=== PATIENT | female | born 1995 | race Caucasian/White ===

== ENCOUNTER 2017-11-24 23:16 | Inpatient (IN) ==
[2017-11-24] MEDS ORDERED: Ringers Solution, Lactated 1,000 ML ONE (23:20)
[2017-11-24] MEDS ORDERED: Naloxone 0.4 MG/ML INJ IVP PRN (23:25)
[2017-11-24] MEDS ORDERED: Famotidine 20 MG/2 ML VIAL IVP PRN (23:25)
[2017-11-24] MEDS ORDERED: Ringers Solution, Lactated 1,000 ML IVC SCH (23:30)
[2017-11-25] MEDS ORDERED: Bupivacaine-MPF 0.25% 10 ML VIAL EP ONE (00:13)
[2017-11-25] MEDS ORDERED: *HR* FentaNYL (PF) 100 MCG/2 ML VIAL EP ONE (00:13)
[2017-11-25] MEDS ORDERED: Epidural Premix (fent/bupiv) 110 ML EP SCH (00:15)
[2017-11-25] MEDS ORDERED: Epidural Premix (fent/bupiv) 0 ML EP ONE (00:26)
[2017-11-25] MEDS ORDERED: *HR* Oxytocin 10 UNIT/ML VIAL IM ONE ×2 (00:39→00:40)
[2017-11-25] MEDS ORDERED: Lidocaine 1% 20 ML MDV ONE ×2 (00:58→01:02)
--- NOTE | 2017-11-25 01:58 | OB/GYN History & Physical ---
Date of Encounter: 11/25/17 Time of Encounter: 01:48 Assessment and Plan (1) Uterine contractions Current visit: Yes Status: Acute Contractions about every 2 minutes Cervical change from 1-2cm to 4cm SROM at 2309 Admit to L&D monitoring: baseline 140 with variability and accels - Category I Kibler Q 2-3 minutes Expect (2) complicated by subutex maintenance, antepartum Current visit: Yes Status: Acute (3) Hepatitis C antibody test positive Current visit: Yes Status: Acute (4) Rubella non-immune status, antepartum Current visit: Yes Status: Acute (5) 39 weeks gestation of Current visit: Yes Status: Acute History of Present Illness Chief complaint: Contractions HPI: Ms. Bryant is a 22 year old female at 39w6d presenting to L&D with contractions. She initially went to the ED at [facility] with contractions every 2 minutes. Cervix at [facility] was 1-2cm. She was then transferred to [place] for further management. She denies LOF, vaginal bleeding, or vaginal discharge. This has been complicated by tobacco use and subutex. She has a history of Hepatitis C. She denies fevers, chills, abdominal pain, dysuria, or edema. Blood type O+ GBS negative Rubella Non-immune Varicella Immune Hep B negative Hep C positive All other serologies negative Past Med Surg Social Fam HX - Past Medical History Medical history: hepatitis (Hep C) Psychiatric history: anxiety, depression - Past Surgical History Surgical History: no surgical history - Social History Smoking Status: Current every day smoker Packs per day: 1/4 Smokeless Tobacco Status: No Alcohol use: none Drug use: none - Family History Mother Adopted: No Hx Family Cardiac Disorders: No Hx Family Respiratory Disorders: No Hx Family Cancer: No Hx Family GI Disorders: No Hx Family Genitourinary Disorders: No Hx Family Endocrine Disorder: No Hx Family Musculoskeletal Disorders: No Hx Family Neuromuscular Disorders: No Hx Family Neurologic Disorders: No Hx Family HEENT Disorders: No Hx Family Autoimmune Disorders: No Hx Family Reproductive Disorders: No Hx Family Psychosocial Disorders: No Hx Family Medical Disorders: No Obstetrical History - Pregnancies : 1 Para: 0 Term: 0 : 0 Ab's: 0 Livin - History/Complications History/Complications: Tobacco use and subutex Medications and Allergies Acetaminophen [Tylenol] 650 mg PO Q6HR PRN #0 tablet 06/06/16 [Rx] Docusate Sodium [Colace] 100 mg PO BID #20 capsule 07/12/16 [Rx] Hydrocortisone Acetate [Anusol-Hc] 25 mg RC BID #28 supp.rect 07/12/16 [Rx] Polyethylene Glycol 3350 [MiraLAX] 17 gm PO BID #10 powd.pack 07/12/16 [Rx] 3 Allergy/AdvReac Type Severity Reaction Status Date / Time Cyclobenzaprine Allergy Anaphylaxis Verified 06/03/16 22:15 [From Flexeril] Review of System OB All systems PM: reviewed and no additional remarkable complaints except as stated Exam - Constitutional Constitutional: well developed, well nourished, no acute distress, average body habitus - HEENT HEENT: Normocephaly, Mucus Membranes Moist - Lungs Respiratory exam: CTAB - Cardiovascular Cardiovascular exam: RRR, +S1, +S2 - Abdomen Abdomen: Present: bowel sounds normal - Extremities Extremities exam: normal capillary refill - Vulva Vulva: bilateral: normal - Vagina Vagina: Present: normal moisture - Cervix Dilation: 4 (per therapeutic massage technician exam) Effacement: 100 Station: 0 - Uterus Uterus exam: Present: normal size, normal contour - Anus/Rectum Anus/Rectum: Present: hemorrhoids - Comments Comments: Several healing skin wounds of various stages on legs and arms. Needle montiel noted to numerous (greater than 20) places on skin. Pt refuses to disclose the origin of her montiel. Results Result Diagrams: 11/24/17 00:00 Abnormal lab results WBC 13.0 K/mcL (4.3-11.1) H 11/24/17 00:00 Hgb 10.6 g/dL (11.5-15.4) L 11/24/17 00:00 Hct 32.2 % (35.3-44.9) L 11/24/17 00:00 MCV 78.5 fL (83.0-100.0) L 11/24/17 00:00 MCH 25.9 pg (28.0-33.3) L 11/24/17 00:00 RDW 15.6 % (11.5-14.5) H 11/24/17 00:00 Neutrophils # 10.0 K/mcL (1.6-8.9) H 11/24/17 00:00 All other labs normal. - VTE Reasons for not Prescribing Prophylaxis: Treatment not Indicated - Low risk for VTE
--- NOTE | 2017-11-25 02:04 | OB/GYN Procedure Note ---
Delivery - Delivery Date: 11/25/17 Provider: Romelia Rose Intrapartum events: meconium Delivery induction: none Delivery monitor: external FHT, external uterine Anesthesia: local Estimated Blood Loss: 250 - Infant (s) Infant A Delivery Date: 11/25/17 Infant Delivery Time: 00:53 Presentation: vertex Position: OA Route of delivery: Gender: Male Viability: Viable Pounds: 8 Ounces: 2 Weight Gram: 3685 kg at 1 minute: 8 at 5 mins: 9 Shoulder Dystocia: not encountered Specimens collected: cord blood Placenta: spontaneous Cord: 3 umbilical vessels - Repair Episiotomy: none Laceration Description: Labial - Complications Delivery complications: none Delivery comments: Patient presented in spontaneous labor from [facility]. Meconinum stained fluid during labor. Patient progressed to complete, maternal bearing down efforts of liveborn male. Vertex delivered OA. Due to halting of all maternal effort shoulders did not immediately follow, once patient was repositioned and redirected shoulders and body easily followed. Terminal meconium also noted at delivery. Dr. Bruno called to attend delivery after shoulders did not initially deliver. Vigorous infant placed on bed cord clamped and cut infant handed off to nursery team for evaluation. Apgars 8/9. Placenta delivered spontaneously, complete upon inspection. Fundus massaged until firm. IM Pitocin given to the patient due to lack of intravenous access. Bilateral labial tears repaired with 4-0 Vicryl. EBL 250. Obion needle cap came out on head during delivery. Mother also spit out a ball of plastic containing an unknown substance from her mouth, immediately after delivery package was turned over hospital security. - Disposition Mom disposition: stable in LDR Mccormick disposition: stable in LDR
[2017-11-25 02:14] LABS: Amphetamine Screen,Urine Negative ng/mL (Cutoff=1000); Barbiturate Screen,Urine Negative ng/mL (Cutoff=200); Benzodiazepines Screen,Urine Negative ng/mL (Cutoff=200); Cannabinoid Screen,Urine Positive ng/mL (Cutoff = 50); Cocaine Screen,Urine Negative ng/mL (Cutoff= 300); Opiate Screen,Urine Negative ng/mL (Cutoff=300); Phencyclidine Screen,Urine Negative ng/mL (Cutoff=25)
[2017-11-25] MEDS ORDERED: Measles/Mumps/Rubella Vacc 0.5 ML VIAL SQ PRN (04:19)
[2017-11-25] MEDS ORDERED: Acetaminophen 325 MG TABLET PO PRN (04:19)
[2017-11-25] MEDS ORDERED: Rho Immune Globulin 1,500 UNIT SYRINGE IM PRN (04:19)
[2017-11-25] MEDS: Ibuprofen 600 MG TABLET PO SCH ×3 (06:31→17:02)
[2017-11-25] MEDS: Prenatal Vit/FA 1 EACH TABLET PO SCH (11:23)
[2017-11-25] MEDS: miSOPROStol 100 MCG TABLET PO SCH ×3 (11:23→20:00)
[2017-11-26 06:53] LABS: Basophils % 0.2 %; Eosinophils # 0.1 K/mcL (0.0-0.6); Eosinophils % 0.7 %; Hematocrit 30.6 % (35.3-44.9); Hemoglobin 9.9 g/dL (11.5-15.4); Immature Granulocytes % 0.9 % (0-4); Lymphocytes # 2.2 K/mcL (0.6-4.6); Lymphocytes % 22.8 %; Mean Corpuscular HGB Conc 32.4 g/dL (31.6-35.5); Mean Corpuscular Hemoglobin 26.1 pg (28.0-33.3); Mean Corpuscular Volume 80.5 fL (83.0-100.0); Mean Platelet Volume 9.6 fL (9.4-12.4); Monocytes # 0.5 K/mcL (0.0-1.3); Neutrophils # 6.9 K/mcL (1.6-8.9); Platelet Count 275 K/mcL (140-400); Red Cell Distribution Width 15.5 % (11.5-14.5); Segmented Neutrophils % 70.4 %
[2017-11-26 08:16] VITALS: BP 114/71
[2017-11-26] MEDS: Ibuprofen 600 MG TABLET PO SCH (09:23)
[2017-11-26] MEDS: Prenatal Vit/FA 1 EACH TABLET PO SCH (09:24)
--- NOTE | 2017-11-26 10:22 | Discharge Summary ---
Date of Encounter: 11/26/17 Time of Encounter: 10:19 - Discharge Diagnosis (1) Status post vaginal delivery Priority: Primary Status: Acute Comments: Pt doing well and meeting milestones Voiding well, tolerating po intake, ambulating well Pain controlled Her baby is a 5 day hold She may be discharged today (2) complicated by subutex maintenance, antepartum Priority: Secondary Status: Acute Comments: Follows with Dr. Patel. She has a subutex prescription at home. Recommended close follow-up with Dr. Patel SW saw patient during hospitalization and verified Subutex use. Due to conflicting stories about drug use, [facility] was notified. (3) Hepatitis C antibody test positive Priority: Secondary Status: Acute (4) Rubella non-immune status, antepartum Priority: Secondary Status: Acute Comments: Will give MMR (5) 39 weeks gestation of Priority: Secondary Status: Acute - Discharge Medications Prescriptions: Ibuprofen [Motrin] 600 mg PO Q6HR PRN #60 tablet PRN Reason: Mild To Moderate Pain Benzocaine/Menthol Slick [Dermoplast Slick] 56 gm TP 1-3XD PRN #1 aerosol PRN Reason: Mild To Moderate Pain Docusate [Colace] 100 mg PO BID PRN #60 capsule PRN Reason: Constipation Ferrous Sulfate 325 mg PO DAILY #30 tablet Home Medications: Acetaminophen [Tylenol] 650 mg PO Q6HR PRN #0 tablet 06/06/16 [Rx] Docusate Sodium [Colace] 100 mg PO BID #20 capsule 07/12/16 [Rx] Hydrocortisone Acetate [Anusol-Hc] 25 mg RC BID #28 supp.rect 07/12/16 [Rx] Polyethylene Glycol 3350 [MiraLAX] 17 gm PO BID #10 powd.pack 07/12/16 [Rx] Acetaminophen [Tylenol] 650 mg PO Q6HR PRN tablet 11/26/17 [Rx] Benzocaine/Menthol Slick [Dermoplast Slick] 56 gm TP 1-3XD PRN #1 aerosol [Rx] Docusate [Colace] 100 mg PO BID PRN #60 capsule 11/26/17 [Rx] Ferrous Sulfate 325 mg PO DAILY #30 tablet 11/26/17 [Rx] Ibuprofen [Motrin] 600 mg PO Q6HR PRN #60 tablet 11/26/17 [Rx] Vit/FA 1 each PO DAILY tablet 11/26/17 [Rx] Allergies/Adverse Reactions: 3 Allergy/AdvReac Type Severity Reaction Status Date / Time Cyclobenzaprine Allergy Anaphylaxis Verified 06/03/16 22:15 [From Flexeril] Data Procedures and tests throughout hospitalization: Laboratory Tests 11/24/17 11/25/17 11/26/17 00:00 01:59 06:24 WBC 13.0 H 9.7 RBC 4.10 3.80 L Hgb 10.6 L 9.9 L Hct 32.2 L 30.6 L MCV 78.5 L 80.5 L MCH 25.9 L 26.1 L MCHC 32.9 32.4 RDW 15.6 H 15.5 H Plt Count 313 275 MPV 9.8 9.6 Immature Gran % 0.8 0.9 Seg Neutrophils % 76.7 70.4 Lymphocytes % 18.4 22.8 Monocytes % 3.8 5.0 Eosinophils % 0.1 0.7 Basophils % 0.2 0.2 Neutrophils # 10.0 H 6.9 Lymphocytes # 2.4 2.2 Monocytes # 0.5 0.5 Eosinophils # 0.0 0.1 Basophils # 0.0 0.0 Urine Opiates Screen Negative Ur Barbiturates Screen Negative Ur Phencyclidine Scrn Negative Ur Amphetamines Screen Negative U Benzodiazepines Scrn Negative Urine Cocaine Screen Negative U Marijuana (THC) Screen Positive H Labs on day of discharge: Labs from last 24 hours 11/26/17 06:24 WBC 9.7 RBC 3.80 L Hgb 9.9 L Hct 30.6 L MCV 80.5 L MCH 26.1 L MCHC 32.4 RDW 15.5 H Plt Count 275 MPV 9.6 Immature Gran % 0.9 Seg Neutrophils % 70.4 Lymphocytes % 22.8 Monocytes % 5.0 Eosinophils % 0.7 Basophils % 0.2 Neutrophils # 6.9 Lymphocytes # 2.2 Monocytes # 0.5 Eosinophils # 0.1 Basophils # 0.0 Date of admission: 11/24/17 23:16 Primary care physician: PCP NONE Consults: 11/25/17 04:19 Consult to [employer] Consultant [CONS] Routine Comment: Vaginal delivery, consult needed Consult to Second Vp Hr Assessment [CONS] Routine Reason for SW Consult: nonprescription drug use Discharging clinician: Gopi R Alton Anticipated date of discharge: 11/26/17 - Patient Status Disposition: Home, Self-Care Condition: Good Functional capacity at discharge: independent ambulation Overall status at discharge: patient is progressing back to baseline - Discharge Instructions Follow Up With: NONE,PCP [Primary Care Provider] - Additional Instructions: Take medications as prescribed Follow-up with Dr. Patel within the next week Follow-up with OB in 4-6 weeks for routine follow-up - Diet and Activity Activity: increase activity as tolerated Diet: advance to your usual diet Hospital Course Reason for admission: active labor Delivery: Episiotomy: none Laceration: other (labial) Other procedures: none complications: none Discharge diagnosis: IUP at term delivered baby: male Hospital course: - Delivery Date: 11/25/17 Provider: Romelia Rose Intrapartum events: meconium Delivery induction: none Delivery monitor: external FHT, external uterine Anesthesia: local Estimated Blood Loss: 250 - (s) Infant A Delivery Date: 11/25/17 Delivery Time: 00:53 Presentation: vertex Position: OA Route of delivery: Gender: Male Viability: Viable Pounds: 8 Ounces: 2 Weight Gram: 3685 kg at 1 minute: 8 at 5 mins: 9 Shoulder Dystocia: not encountered Specimens collected: cord blood Placenta: spontaneous Cord: 3 umbilical vessels - Repair Episiotomy: none Laceration Description: Labial - Complications Delivery complications: none Delivery comments: Patient presented in spontaneous labor from [facility] ED. Meconinum stained fluid during labor. Of note during delivery: orange needle cap came out on head during delivery. Mother also spit out a ball of plastic containing an unknown substance from her mouth, immediately after delivery package was turned over hospital security. Pt is doing well and meeting milestones. Tolerating po intake, voiding well, ambulating well, pain controlled. She may be discharged. Time Attestation: Total time spent providing and/or coordinating discharge services: Time Spent: Less than 30 minutes Exam - Constitutional Vitals: Temp Pulse Resp BP Pulse Ox 97.9 F 68 16 114/71 96 11/26/17 08:15 11/26/17 08:15 11/26/17 10:04 11/26/17 08:15 11/26/17 08:15 General appearance IM: A&O X 3, no acute distress - Respiratory Respiratory exam: Present: CTAB - Cardiovascular Cardiovascular exam IM: Present: RRR, +S1, +S2 - GI/Abdominal GI/Abdominal exam IM: normal bowel sounds, soft, no peritoneal signs - Uterine Tone: Firm Uterus Position: 3 Fingers Below Umbilicus - Extremities Exam Extremities exam IM: Present: normal capillary refill, normal inspection - Neurological Exam Neurological exam: alert, no focal deficits - Attending Attestation I examined this patient and my medical decision-making was reviewed with the Resident Physician. I agree with the documented findings, disposition and treatment plan as described. Lucia Ko CNM
== END 2017-11-26 13:10 | disposition home or self-care (01) | DRG 774 ==
LOC: 1NENULAB 23:16 → 1NENUOBS 11-25 03:55
PROVIDERS: ADMIT Advanced Practice Midwife; ATTEND Advanced Practice Midwife

== ENCOUNTER 2022-07-05 13:48 | Observation (INO) ==
[2022-07-05 18:23] LABS: Bacteria,Urine Few per hpf (None-Few); Bilirubin,Urine Small (Negative); Blood,Urine Negative (Negative); Clarity,Urine Turbid (Clear); Color,Urine Orange (Yellow); Glucose,Urine (UA) Normal (Normal); Hyaline Casts,Urine Few per lpf (None Seen); Ketones,Urine Negative (Negative); Leukocyte Esterase,Urine Trace (Negative); Mucus,Urine Few per lpf (None-Few); Nitrite,Urine Positive (Negative); PH,Urine 6.5 pH Units (5.0-8.0); Protein,Urine 30 mg/dL (Neg-Trace); Specific Gravity,Urine 1.019 (1.010-1.025); Squamous Epithelial Cell,Urine Many per hpf (None-Few)
[2022-07-05] MEDS ORDERED: Iopamidol - 370 500 ML MLS IVP ONE (18:44)
[2022-07-05] MEDS ORDERED: 0.9 % Sodium Chloride 1,000 ML IV ONE ×2 (18:46→20:00)
[2022-07-05] MEDS ORDERED: cefTRIAXone 1,000 MG in 0.9 % Sodium Chloride 10 ML IVP ONE (20:02)
[2022-07-05 20:37] LABS: Adenovirus Not Detected (Not Detect); Bordetella Pertussis Not Detected (Not Detect); Chlamydophila pneumoniae Not Detected (Not Detect); Coronavirus 229E Not Detected (Not Detect); Coronavirus HKU1 Not Detected (Not Detect); Coronavirus NL63 Not Detected (Not Detect); Coronavirus OC43 Not Detected (Not Detect); Human Metapneumovirus Not Detected (Not Detect); Human Rhinovirus/Enterovirus Not Detected (Not Detect); Influenza A Subtype 2009 H1 Not Detected (Not Detect); Influenza B Not Detected (Not Detect); Mycoplasma pneumoniae Not Detected (Not Detect); Parainfluenza Virus 1 Not Detected (Not Detect); Parainfluenza Virus 2 Not Detected (Not Detect); Parainfluenza Virus 3 Not Detected (Not Detect); Parainfluenza Virus 4 Not Detected (Not Detect); Respiratory Syncytial Virus Not Detected (Not Detect); SARS-CoV-2 Not Detected (Not Detect)
[2022-07-05 20:48] LABS: Amphetamine Screen,Urine Positive ng/mL (Cutoff=1000); Barbiturate Screen,Urine Negative ng/mL (Cutoff=200); Benzodiazepines Screen,Urine Negative ng/mL (Cutoff=200); Cannabinoid Screen,Urine Negative ng/mL (Cutoff = 50); Cocaine Screen,Urine Positive ng/mL (Cutoff= 300); Opiate Screen,Urine Negative ng/mL (Cutoff=300); Phencyclidine Screen,Urine Negative ng/mL (Cutoff=25)
[2022-07-05 21:02] LABS: Hematocrit 34.9 % (35.3-44.9); Hemoglobin 11.8 g/dL (11.5-15.4); Immature Granulocytes % 0.3 % (0-4); Immature Platelets 3.4 % (1.1-6.1); Lymphocytes # 0.1 K/mcL (0.6-4.6); Lymphocytes % 3.5 %; Mean Corpuscular HGB Conc 33.8 g/dL (31.6-35.5); Mean Corpuscular Hemoglobin 29.1 pg (28.0-33.3); Mean Corpuscular Volume 86.2 fL (83.0-100.0); Mean Platelet Volume 10.2 fL (9.4-12.4); Monocytes % 0.9 %; Neutrophils # 3.3 K/mcL (1.6-8.9); Platelet Count 71 K/mcL (140-400); Red Blood Count 4.05 M/mcL (3.82-4.97); Red Cell Distribution Width 12.6 % (11.5-14.5); Segmented Neutrophils % 95.3 %; White Blood Count 3.5 K/mcL (4.3-11.1)
[2022-07-05 21:04] LABS: VBG HCO3 26 mEq/L (21-27); VBG PCO2 49 mmHg (41-51); VBG PH 7.33 pH Units (7.32-7.42); VBG PO2 38 mmHg (25-50)
[2022-07-05 21:22] LABS: Platelet Estimate Decreased (Normal)
[2022-07-05 21:23] LABS: Alanine Aminotransferase 117 Units/L (7-52); Albumin 3.6 g/dL (3.5-5.7); Albumin/Globulin Ratio 1.3 (1.1-2.2); Alkaline Phosphatase 84 Units/L (34-104); Amylase 21 Units/L (29-103); Aspartate Amino Transferase 149 Units/L (13-39); BUN/Creatinine Ratio 17 (6-26); Bilirubin,Direct 1.5 mg/dL (0.0-0.2); Bilirubin,Indirect 1.5 mg/dL (0.0-1.0); Blood Urea Nitrogen 18 mg/dL (6-20); Calcium 8.3 mg/dL (8.6-10.3); Carbon Dioxide 25 mEq/L (23-29); Chloride 96 mEq/L (98-107); Globulin 2.8 g/dL (2.4-3.5); Glucose 119 mg/dL (70-105); Osmolality,Calculated 269 (280-300); Potassium 4.1 mEq/L (3.5-5.1); Sodium 128 mEq/L (136-145); Total Protein 6.4 g/dL (6.4-8.9); eGFR For African Americans > 60 (> 60); eGFR For Non-African Americans > 60 (> 60)
[2022-07-05 21:29] LABS: Acetaminophen < 10 mcg/mL (10-20)
[2022-07-05] MEDS ORDERED: MetroNIDAZOLE 500 MG/100 ML 500 MG/100 ML BAG IVPB ONE (21:30)
[2022-07-05 22:02] LABS: INR 1.3; Prothrombin Time 14.6 Seconds (9.4-12.1)
[2022-07-05] MEDS ORDERED: Acetaminophen 325 MG TABLET PO PRN (22:23)
[2022-07-05] MEDS ORDERED: Naloxone 0.4 MG/ML INJ IVP PRN (22:23)
[2022-07-05] MEDS ORDERED: Melatonin 3 MG TABLET PO PRN (22:23)
[2022-07-05] MEDS ORDERED: Ondansetron 4 MG/2 ML VIAL IVP PRN (22:23)
[2022-07-05 22:59] LABS: Hepatitis B Surface Antigen Nonreactive (Nonreactive)
[2022-07-05 23:29] LABS: Hepatitis B Core IgM Nonreactive (Nonreactive)
[2022-07-05 23:30] LABS: Hepatitis A Antibody IgM Nonreactive (Nonreactive)
[2022-07-06] MEDS ORDERED: *HR* LORazepam 0.5 MG TABLET PO ONE (00:07)
[2022-07-06] MEDS ORDERED: Dextrose Gel 15 GM/37.5 ML TUBE PO PRN ×2 (00:07)
[2022-07-06] MEDS ORDERED: *HR* Dextrose 50 % in Water (Syg) 50 ML SYRINGE IVP PRN (00:07)
[2022-07-06] MEDS ORDERED: D5% in Water 1,000 ML IVC PRN (00:07)
[2022-07-06] MEDS: *HR* OxyCODONE Immed Rel 5 MG TABLET PO PRN ×2 (00:26→20:33)
[2022-07-06] MEDS: Piperacillin/Tazobactam 3.375 GM in 0.9 % Sodium Chloride Mini Bag 100 ML IVPB SCH ×4 (00:31→23:47)
[2022-07-06] MEDS: Ringers Solution, Lactated 1,000 ML IVC SCH ×2 (00:33→16:52)
[2022-07-06] MEDS ORDERED: Saliva Stimulant 44.3ml BOTTLE PO PRN (01:24)
[2022-07-06] MEDS ORDERED: Morphine Sulfate 2 MG/ML SYRINGE IVP ONE (01:43)
[2022-07-06] MEDS: Calcium Gluconate 1gm/50mL 1 GM/50 ML BAG IVPB SCH ×2 (01:57→02:47)
[2022-07-06 02:58] LABS: Hepatitis C Virus Antibody Reactive (Nonreactive)
[2022-07-06] MEDS ORDERED: Ringers Solution, Lactated 1,000 ML IVC ONE (04:50)
[2022-07-06] MEDS ORDERED: Vancomycin 1,250 MG/262.5 ML IV.SOLN IVPB SCH (06:00)
[2022-07-06] MEDS: Lactobacillus 1 EACH CAP.SPRINK PO SCH ×2 (10:24→20:32)
[2022-07-06] MEDS: Nicotine 21 MG PATCH.TD24 TD SCH (10:24)
[2022-07-06] MEDS: *HR* HYDROcodone/Acet 5/325 mg TABLET PO PRN (10:32)
[2022-07-06 12:20] LABS: Basophils % 0.1 %; Hemoglobin 11.6 g/dL (11.5-15.4); Lymphocytes % 3.7 %; Red Cell Distribution Width 12.9 % (11.5-14.5)
[2022-07-06 12:21] LABS: Hematocrit 34.3 % (35.3-44.9); Immature Granulocytes % 0.6 % (0-4); Immature Platelets 5.2 % (1.1-6.1); Lymphocytes # 0.4 K/mcL (0.6-4.6); Mean Corpuscular HGB Conc 33.8 g/dL (31.6-35.5); Mean Corpuscular Hemoglobin 28.8 pg (28.0-33.3); Mean Corpuscular Volume 85.1 fL (83.0-100.0); Mean Platelet Volume 10.1 fL (9.4-12.4); Monocytes # 0.6 K/mcL (0.0-1.3); Monocytes % 5.6 %; Red Blood Count 4.03 M/mcL (3.82-4.97); White Blood Count 11.4 K/mcL (4.3-11.1)
[2022-07-06 12:24] LABS: Neutrophils # 10.3 K/mcL (1.6-8.9); Platelet Count 73 K/mcL (140-400)
[2022-07-06 12:27] LABS: INR 1.6; Prothrombin Time 17.7 Seconds (9.4-12.1)
[2022-07-06 12:29] LABS: Activated Partial Thrombo Time 39.2 Seconds (26.0-36.0)
[2022-07-06 12:52] LABS: Alanine Aminotransferase 106 Units/L (7-52); Albumin 3.5 g/dL (3.5-5.7); Albumin/Globulin Ratio 1.2 (1.1-2.2); Alkaline Phosphatase 79 Units/L (34-104); Aspartate Amino Transferase 95 Units/L (13-39); BUN/Creatinine Ratio 20 (6-26); Bilirubin,Total 1.2 mg/dL (0.3-1.0); Blood Urea Nitrogen 17 mg/dL (6-20); Calcium 8.5 mg/dL (8.6-10.3); Carbon Dioxide 26 mEq/L (23-29); Chloride 101 mEq/L (98-107); Gamma Glutamyl Transpeptidase 66 Units/L (7-64); Globulin 2.9 g/dL (2.4-3.5); Glucose 83 mg/dL (70-105); Magnesium 1.4 mg/dL (1.6-2.6); Osmolality,Calculated 279 (280-300); Phosphorous 3.4 mg/dL (2.7-4.5); Potassium 3.7 mEq/L (3.5-5.1); Sodium 134 mEq/L (136-145); Total Protein 6.4 g/dL (6.4-8.9); eGFR For African Americans > 60 (> 60); eGFR For Non-African Americans > 60 (> 60)
[2022-07-06] MEDS: *HR* LORazepam 2 MG/ML VIAL IVP PRN ×2 (14:59→20:33)
[2022-07-06 23:28] VITALS: TEMP 98; O2SAT 95
[2022-07-07] MEDS: *HR* HYDROcodone/Acet 5/325 mg TABLET PO PRN (03:23)
[2022-07-07] MEDS: *HR* LORazepam 2 MG/ML VIAL IVP PRN ×2 (03:23→09:15)
[2022-07-07 03:55] VITALS: BP 97/58; PULSE 96
[2022-07-07 04:14] LABS: Hemoglobin 10.7 g/dL (11.5-15.4); Mean Platelet Volume 11.1 fL (9.4-12.4); Red Cell Distribution Width 13.2 % (11.5-14.5)
[2022-07-07 04:16] LABS: Basophils % 0.1 %; Eosinophils % 0.1 %; Hematocrit 32.3 % (35.3-44.9); Immature Granulocytes % 6.3 % (0-4); Immature Platelets 4.8 % (1.1-6.1); Lymphocytes # 1.2 K/mcL (0.6-4.6); Lymphocytes % 8.9 %; Mean Corpuscular HGB Conc 33.1 g/dL (31.6-35.5); Mean Corpuscular Hemoglobin 28.5 pg (28.0-33.3); Mean Corpuscular Volume 86.1 fL (83.0-100.0); Monocytes # 0.6 K/mcL (0.0-1.3); Monocytes % 4.8 %; Neutrophils # 10.7 K/mcL (1.6-8.9); Platelet Count 72 K/mcL (140-400); Red Blood Count 3.75 M/mcL (3.82-4.97); Segmented Neutrophils % 79.8 %; White Blood Count 13.4 K/mcL (4.3-11.1)
[2022-07-07] MEDS: Ringers Solution, Lactated 1,000 ML IVC SCH (04:30)
[2022-07-07 04:33] LABS: Alanine Aminotransferase 77 Units/L (7-52); Albumin/Globulin Ratio 1.2 (1.1-2.2); Alkaline Phosphatase 73 Units/L (34-104); Aspartate Amino Transferase 61 Units/L (13-39); BUN/Creatinine Ratio 17 (6-26); Bilirubin,Total 0.7 mg/dL (0.3-1.0); Blood Urea Nitrogen 13 mg/dL (6-20); Calcium 8.4 mg/dL (8.6-10.3); Carbon Dioxide 26 mEq/L (23-29); Chloride 106 mEq/L (98-107); Globulin 2.6 g/dL (2.4-3.5); Glucose 98 mg/dL (70-105); Magnesium 1.5 mg/dL (1.6-2.6); Osmolality,Calculated 282 (280-300); Phosphorous 1.8 mg/dL (2.7-4.5); Potassium 3.8 mEq/L (3.5-5.1); Sodium 136 mEq/L (136-145); Total Protein 5.6 g/dL (6.4-8.9); eGFR For African Americans > 60 (> 60); eGFR For Non-African Americans > 60 (> 60)
[2022-07-07] MEDS: Lactobacillus 1 EACH CAP.SPRINK PO SCH (08:57)
[2022-07-07] MEDS: Piperacillin/Tazobactam 3.375 GM in 0.9 % Sodium Chloride Mini Bag 100 ML IVPB SCH (08:57)
[2022-07-07] MEDS: Nicotine 21 MG PATCH.TD24 TD SCH (08:57)
[2022-07-07] MEDS ORDERED: Nicotine 2 MG GUM BC PRN (11:46)
[2022-07-07] MEDS: *HR* OxyCODONE Immed Rel 5 MG TABLET PO PRN (12:52)
[2022-07-07] MEDS ORDERED: Ampicillin 2,000 MG in 0.9 % Sodium Chloride Mini Bag 100 ML IVPB SCH (18:00)
[2022-07-08 14:15] LABS: HCV Quant Interpretation DETECTED (Not Detected); HCV Quant Log 4.02 log IU/mL
== END 2022-07-07 13:35 | disposition left against medical advice (07) ==
LOC: SUATTDRO → EMEROOARM 13:48 → 3NENU 13:48 → SUATTDRO 22:44 → 3NENU 23:51
PROVIDERS: ADMIT Internal Medicine; ATTEND Internal Medicine